=== PATIENT | male | born 1995 | race Two or more races ===

== ENCOUNTER 2024-06-01 08:05 | Day surgery (SDC) | payer BC, SELFPAY ==
[2024-05-31 10:20] VITALS: BMI 27.3
[2024-05-31 12:16] LABS: Basophils # (Auto) 0.1 Thou/mm3 (0.0-0.2); Basophils % (Auto) 1 % (0-2.5); Eosinophils # (Auto) 0.4 Thou/mm3 (0.0-0.5); Eosinophils % (Auto) 5 % (0-10); Hematocrit 44.7 % (41.0-53.0); Hemoglobin 15.3 g/dL (13.5-16.0); Immature Granulocytes % (Auto) 0 % (0-0); Immature Granulocytes Auto 0.02 Thou/mm3 (0.00-0.00); Lymphocytes # (Auto) 2.3 Thou/mm3 (1.0-4.8); Lymphocytes % (Auto) 32 % (10-50); Mean Corpuscular HGB Conc 34.2 g/dl (31.0-37.0); Mean Corpuscular Hemoglobin 29.1 pg (25.0-35.0); Mean Corpuscular Volume 85 fL (80-100); Monocytes # (Auto) 0.5 Thou/mm3 (0.0-0.8); Monocytes % (Auto) 7 % (0-12); Neutrophils % (Auto) 55 % (37-80); Nucleated Red Blood Cell % 0 /100 WBC (0); Platelet Count 263 Thou/mm3 (140-440); RDW Standard Deviation 38.1 fL (35.1-43.9); Red Blood Count 5.25 Miln/mm3 (4.50-5.90); White Blood Count 7.3 Thou/mm3 (3.8-10.6)
[2024-05-31 12:24] LABS: Alanine Aminotransferase 42 U/L (10-49); Albumin, Serum 4.6 gm/dL (3.5-5.0); Albumin/Globulin Ratio 1.6 (1.2-2.2); Alkaline Phosphatase 80 U/L (46-116); Anion Gap 7 (7-16); Aspartate Amino Transferase 24 U/L (0-34); BUN/Creatinine Ratio 12 Ratio (12-20); Bilirubin,Total 0.8 mg/dL (0.3-1.2); Blood Urea Nitrogen 14 mg/dL (9-23); Carbon Dioxide 29.5 mMol/L (20.0-31.0); Chloride 106 mMol/L (98-107); Creatinine (Component) 1.2 mg/dL (0.6-1.3); Estimated Creatinine Clearance 95.5 mL/min (>60); Globulin 2.8 gm/dL (2.3-3.5); Glucose 112 mg/dL (74-106); Osmolality,Calculated 284 (275-295); Potassium 3.9 mMol/L (3.4-5.1); Sodium 142 mMol/L (136-145); Total Protein 7.4 gm/dL (5.7-8.2); eGFR > 60 See Note
[2024-05-31 12:32] LABS: Partial Thromboplastin Time 28.7 Seconds (22.0-36.0); Prothrombin Time 10.8 Seconds (9.0-12.2)
[2024-06-01] VITALS (7 sets, daily range): BP systolic 95–134; BP diastolic 51–83; PULSE 62–89; RESP 12–20; TEMP 36.7–36.8; O2SAT 96–100; BMI 26.8
--- NOTE | 2024-06-01 11:04 | SUR.PHASEI ---
1104 Patient arrived to recovery resting comfortably in [facility], on oxygen 8L via oxy mask with an oral airway in place, breathing unlabored, vital signs stable, dressing intact to lower back; packing of gauze, adaptic, medipore tape, no bleeding noted, lung sounds clear upon auscultation, bilateral radial pulses present when palpated, report received from Dr. Vale and Maldonado RN/ Hailee DE PAZ
--- NOTE | 2024-06-01 11:05 | PD.SUROPNT ---
Date of Procedure 06/01/24 Pre Op Diagnosis Pilonidal cyst with abscess Post Op Diagnosis Same Procedure Wide excision of the complicated pilonidal cyst Findings Patient was found to have infected pilonidal cyst at the top of the good cleft with purulent material and a fluctuant mass. He also had a 2 other pilonidal cyst with hair which were excised Procedure Description After the patient was brought to the operating room endotracheal anesthesia is given. Then he was placed on prone position and his buttocks were taped apart and shaved and prepped with Betadine solution. Patient's buttocks were taped apart to expose the pilonidal cyst. There were 2 openings in the lower portion of the cleft which had a tuft of hair I used a probe which went deeply all the way to the fascia in the presacral area. Then injected half percent Marcaine with epinephrine and made an elliptical incision and excised the entire pilonidal cyst with the probes in place. Then at the upper portion patient was found to have a fluctuant mass which upon drainage yielded purulent material. Then I found out that the patient had extensive granulation tissue on both sides requiring wider skin excision. Carefully I removed all the granulation tissue and the cyst containing hair. Wound was then extensively irrigated and the bleeding points were controlled with cautery. I placed a 2-0 and 3-0 chromic sutures to approximate the subcutaneous tissue at the lower end of the incision. Skin edges were then closed with interrupted 4-0 nylon stitches. The upper portion could not be closed obviously because of the wide excision and it was packed with fluff and the wound was dressed. Patient tolerated the procedure well Anesthesia GETA Pathology / specimen Other (Excised pilonidal cyst with abscess) Estimated Blood Loss 50 Surgeon Yoon Lira MD Surgical Staff Operation Date: 06/01/24 10:15 Case Staff Anesthesiologist: Willie Vale RNwater quality analyst: Isabel Willsi
--- NOTE | 2024-06-01 11:55 | SUR.PHASEII ---
1155 Patient meets discharge criteria from recovery, awake and alert, breathing unlabored, vital signs stable, denies pain, dressing intact; no bleeding noted, patient drinking water; denies nausea, patient assisted with dressing into his clothing by his , discharge instructions given to patient and patients , signed discharge instructions. Patient given all his belongings prior to discharge, transported via wheelchair and left in a private vehicle.
== END 2024-06-01 11:55 | disposition home or self-care (01) ==
PROVIDERS: PCP Family Medicine; Referring Provider Surgery; Visit Provider Surgery
PROC: (CPT 11772; principal; 2024-06-01 10:00)
DX: L05.01 Pilonidal cyst with abscess (principal)
CPT/HCPCS: 11772; 36415; 80053; 85025; 85610; 85730; A4217; A4649; J0690; J1100; J2704; J2710; J2765; J3010; J3490; J1596